=== PATIENT | female | born 1995 | race Caucasian/White ===

== ENCOUNTER 2016-08-29 23:14 | Inpatient (IN) | payer MEDICAID, OTHER ==
[~2016-08-29] VITALS: Ht 157.5 cm; Wt 48.9 kg
[2016-08-30 00:27] LABS: BASOPHILS # (AUTO) 0.05 K/uL (0.00-0.20); BASOPHILS % (AUTO) 0.6 % (0.0-2.0); EOSINOPHILS # (AUTO) 0.17 K/uL (0.00-0.70); EOSINOPHILS % (AUTO) 2.07 % (1.0-6.0); HEMATOCRIT 37.7 % (36-46); HEMOGLOBIN 12.5 g/dL (12.0-16.0); LYMPHOCYTES # (AUTO) 2.5 K/uL (1.0-4.8); LYMPHOCYTES % (AUTO) 31.5 % (22.0-44.0); MEAN CORPUSCULAR HGB CONC 33.3 G/dL (31.0-37.0); MEAN CORPUSCULAR VOLUME 87 fL (80-100); MONOCYTES # (AUTO) 0.7 K/uL (0.1-1.0); MONOCYTES % (AUTO) 9.2 % (2.0-9.0); NEUTROPHILS # (AUTO) 4.6 K/uL (1.8-7.7); NEUTROPHILS % (AUTO) 56.7 % (40.0-70.0); PLATELET COUNT (AUTO) 254 K/uL (150-450); RED BLOOD CELL COUNT(AUTO) 4.33 MIL/uL (4.00-5.20); WHITE BLOOD COUNT (AUTO) 8.1 K/uL (4.5-11.0)
[2016-08-30 00:35] LABS: ANION GAP 8 mmol/L (8-16); CALCIUM, TOTAL 8.7 mg/dL (8.8-10.5); CARBON DIOXIDE 27 mmol/L (22-29); CHLORIDE 103 mmol/L (98-107); CREATININE 0.65 mg/dL (0.60-1.30); GLOMERULAR FILTR. RATE CALC > 60 mL/min (>60); SODIUM SERUM 138 mmol/L (136-145); UREA NITROGEN, BLOOD 8 mg/dL (7-18)
[2016-08-30 00:41] LABS: ALANINE AMINOTRANSFERASE 20 U/L (12-78); ALBUMIN 4.3 g/dL (3.4-5.0); ASPARTATE AMINOTRANSFERASE 19 U/L (15-37); BILIRUBIN,TOTAL 0.4 mg/dL (0.1-1.0); TOTAL PROTEIN, SERUM 7.5 g/dL (6.4-8.2)
[2016-08-30] MEDS ORDERED: LORazepam 1 MG TABLET PO ONE (01:15)
[2016-08-30] MEDS ORDERED: HALOPERIDOL 5 MG TABLET PO PRN (01:15)
[2016-08-30] MEDS ORDERED: LORazepam 2 MG TABLET PO PRN (01:15)
[2016-08-30] MEDS ORDERED: DiphenhydrAMINE HCL 25 MG CAPSULE PO ONE (01:15)
[2016-08-30] MEDS ORDERED: ZOLPIDEM TARTRATE 10 MG TABLET PO PRN (01:15)
[2016-08-30 01:30] LABS: APPEARANCE,URINE CLOUDY (CLEAR); GLUCOSE, URINE (UA) NEGATIVE (NEGATIVE); KETONES,URINE NEGATIVE (NEGATIVE); LEUKOCYTE ESTERASE ,URINE TRACE (NEGATIVE); OCCULT BLOOD,URINE NEGATIVE (NEGATIVE); PROTEIN,URINE NEGATIVE (NEGATIVE)
[2016-08-30 01:32] LABS: ADD UA MICROSCOPIC YES
[2016-08-30 02:21] LABS: AMORPHOUS SEDIMENT,UR Moderate /LPF (None Seen); RBC,URINE 0-2 /HPF (0-2); SQUAMOUS EPITHELIAL CELL,UR Rare /LPF (None Seen)
[2016-08-30 02:35] VITALS: BP 114/70
[2016-08-30 08:00] VITALS: BP 102/59
[2016-08-30] MEDS ORDERED: PROMETHAZINE HCL 25 MG TABLET PO PRN (11:45)
[2016-08-30] MEDS ORDERED: LOPERAMIDE HCL 2 MG CAPSULE PO PRN (11:45)
[2016-08-30] MEDS ORDERED: HydrOXYzine PAMOATE 50 MG CAPSULE PO PRN (11:45)
[2016-08-30] MEDS ORDERED: MAGNESIUM HYDROXIDE SUSPENSION 30 ML UDCUP PO PRN (11:45)
[2016-08-30] MEDS ORDERED: GuaiFENesin/D-METHORPHAN [SUGAR-FREE] 200-20MG/10 ML SYRUP UDCUP PO PRN (11:45)
[2016-08-30] MEDS ORDERED: ACETAMINOPHEN 325 MG TABLET PO PRN ×2 (11:45→18:15)
[2016-08-30] MEDS ORDERED: MAG HYDROX/AL HYDROX/SIMETH ES 30 ML SUSPENSION UDCUP PO PRN (11:45)
[2016-08-30] MEDS: THIAMINE HCL 100 MG TABLET PO SCH (16:08)
[2016-08-30 16:30] VITALS: BP 105/63
[2016-08-30] MEDS ORDERED: IBUPROFEN 400 MG TABLET PO PRN (18:15)
[2016-08-31 07:00] LABS: CHOL/HDL RATIO 3.1 (3.9-5.7)
[2016-08-31 08:00] VITALS: BP 101/68
[2016-08-31] MEDS: THIAMINE HCL 100 MG TABLET PO SCH ×2 (08:54→17:38)
[2016-08-31] MEDS: CIPROFLOXACIN HCL 500 MG TABLET PO SCH ×2 (08:55→17:38)
[2016-08-31] MEDS ORDERED: FLUoxetine HCL 20 MG CAPSULE PO SCH (09:00)
[2016-08-31] MEDS ORDERED: MULTIVITAMINS WITH MINERALS, THERAPEUTIC TABLET PO SCH (09:00)
[2016-08-31] MEDS ORDERED: FOLIC ACID 1 MG TABLET PO SCH (09:00)
[2016-08-31] MEDS ORDERED: NALTREXONE HCL 50 MG TABLET PO SCH (09:00)
[2016-08-31] MEDS ORDERED: FLUO-191 PO (16:54)
[2016-08-31] MEDS ORDERED: NALT50 PO (16:54)
[2016-08-31] MEDS ORDERED: CIPR-278 PO (18:13)
[2016-08-31] MEDS ORDERED: THIA100 PO (18:16)
[2016-08-31] MEDS ORDERED: FOLI1 PO (18:16)
[2016-08-31] MEDS ORDERED: MULT-711 PO (18:19)
== END 2016-08-31 19:15 | disposition home or self-care (01) | DRG 751 ==
LOC: EMS 23:18 → 3EI 08-30 02:00
PROVIDERS: ADMIT Psychiatry & Neurology Psychiatry; ATTEND Psychiatry & Neurology Psychiatry
DX: F33.9 Major depressive disorder, recurrent, unspecified (principal); G93.41 Metabolic encephalopathy; N39.0 Urinary tract infection, site not specified; E83.51 Hypocalcemia; R45.851 Suicidal ideations; F41.9 Anxiety disorder, unspecified; F12.90 Cannabis use, unspecified, uncomplicated; Z59.9 Problem related to housing and economic circumstances, unspecified; Z55.9 Problems related to education and literacy, unspecified; F19.10 Other psychoactive substance abuse, uncomplicated; Z71.51 Drug abuse counseling and surveillance of drug abuser
CPT/HCPCS: 99285; G0480